=== PATIENT | female | born 1935 | race Native Hawaiian/Other Pacific Islander ===

== ENCOUNTER 2017-12-28 18:49 | Emergency (ER) | payer OTHER ==
[~2017-12-28] VITALS: Ht 165.1 cm; Wt 74.4 kg
[~2017-12-28 18:49] MED LIST: BENZONATATE200 MG PO; FLUT0.05 NAS; GUAI600T70 PO; LEVAQUIN500 MG OR; LIPITOR80 MG PO; LISI10TA11 PO
[2017-12-28 21:33] VITALS: BP 148/77; TEMP 98.4
== END 2017-12-28 21:35 | disposition home or self-care (01) ==
LOC: ED 18:49
DX: S02.19XA Other fracture of base of skull, initial encounter for closed fracture (principal); S00.03XA Contusion of scalp, initial encounter; W17.89XA Other fall from one level to another, initial encounter; Y92.098 Other place in other non-institutional residence as the place of occurrence of the external cause
CPT/HCPCS: 99283; L3908

== ENCOUNTER 2018-01-04 22:53 | Emergency (ER) | payer OTHER ==
[~2018-01-04] VITALS: Ht 165.1 cm; Wt 74.4 kg
[2018-01-05] LABS: PLATELET COUNT 219 K/uL (152-353)
[2018-01-05 00:11] LABS: POTASSIUM 3.5 mmol/L (3.6-5.2)
[2018-01-05 00:44] VITALS: BP 159/71; TEMP 97.9
== END 2018-01-05 00:45 | disposition home or self-care (01) ==
LOC: ED 22:53
PROVIDERS: Internal Medicine
DX: R41.0 Disorientation, unspecified (principal); F03.90 Unspecified dementia, unspecified severity, without behavioral disturbance, psychotic disturbance, mood disturbance, and anxiety; M17.12 Unilateral primary osteoarthritis, left knee; E87.6 Hypokalemia
CPT/HCPCS: 36415; 80053; 81000; 85027; 99283

== ENCOUNTER 2018-04-09 15:11 | Inpatient (IN) | payer OTHER | END 2018-05-08 09:36 | disposition still patient (30) | LOC: PAVC 15:11 | PROVIDERS: ADMIT Internal Medicine ==

== ENCOUNTER 2018-04-11 05:49 | Outpatient (CLI) | payer OTHER ==
[2018-04-11 06:22] LABS: PLATELET COUNT 201 K/uL (152-353)
[2018-04-11 06:42] LABS: POTASSIUM 4.1 mmol/L (3.6-5.2)
== END 2018-04-11 21:11 | disposition home or self-care (01) ==
LOC: LAB 05:49
PROVIDERS: Internal Medicine
DX: F03.90 Unspecified dementia, unspecified severity, without behavioral disturbance, psychotic disturbance, mood disturbance, and anxiety (principal); I10 Essential (primary) hypertension; M85.80 Other specified disorders of bone density and structure, unspecified site
CPT/HCPCS: 80053; 80061; 82306; 82607; 84443; 85027; 87081

== ENCOUNTER 2018-04-14 10:03 | Outpatient (CLI) | payer OTHER | END 2018-04-14 21:29 | disposition home or self-care (01) | LOC: LAB 10:03 | DX: Z75.1 Person awaiting admission to adequate facility elsewhere (principal) | CPT/HCPCS: 87081 ==

== ENCOUNTER 2018-04-22 16:20 | Outpatient (CLI) | payer OTHER | END 2018-04-22 19:06 | disposition home or self-care (01) | LOC: RAD 16:20 | DX: S70.01XA Contusion of right hip, initial encounter (principal); W18.30XA Fall on same level, unspecified, initial encounter ==

== ENCOUNTER 2018-04-26 08:16 | Outpatient (CLI) | payer OTHER | END 2018-04-26 21:41 | disposition home or self-care (01) | LOC: LAB 08:16 | DX: N39.0 Urinary tract infection, site not specified (principal) | CPT/HCPCS: 81000; 87077; 87086; 87088; 87186 ==

== ENCOUNTER 2018-05-02 13:03 | Outpatient (CLI) | payer OTHER | END 2018-05-02 19:07 | disposition home or self-care (01) | LOC: RAD 13:03 | DX: M25.551 Pain in right hip (principal) ==

== ENCOUNTER 2018-05-04 10:14 | Outpatient (CLI) | payer OTHER | END 2018-05-04 20:49 | disposition home or self-care (01) | LOC: RAD 10:14 | DX: M85.80 Other specified disorders of bone density and structure, unspecified site (principal) ==

== ENCOUNTER 2018-05-08 09:50 | Inpatient (IN) | payer OTHER | END 2018-06-08 09:37 | disposition still patient (30) | LOC: PAVC 09:50 | PROVIDERS: ADMIT Internal Medicine ==

== ENCOUNTER 2018-06-08 10:05 | Inpatient (IN) | payer OTHER | END 2018-07-06 12:12 | disposition still patient (30) | LOC: PAVC 10:05 | PROVIDERS: ADMIT Internal Medicine ==

== ENCOUNTER 2018-06-13 18:40 | Outpatient (CLI) | payer OTHER | END 2018-06-13 19:30 | disposition home or self-care (01) | LOC: LAB 18:40 | DX: R10.819 Abdominal tenderness, unspecified site (principal) | CPT/HCPCS: 81000; 87088 ==

== ENCOUNTER 2018-07-06 12:28 | Inpatient (IN) | payer OTHER | END 2018-08-06 12:30 | disposition still patient (30) | LOC: PAVC 12:28 | PROVIDERS: ADMIT Internal Medicine ==

== ENCOUNTER 2018-08-06 12:45 | Inpatient (IN) | payer OTHER | END 2018-09-05 13:42 | disposition still patient (30) | LOC: PAVC 12:45 | PROVIDERS: ADMIT Internal Medicine ==

== ENCOUNTER 2018-09-05 14:08 | Inpatient (IN) | payer OTHER | END 2018-10-06 09:39 | disposition still patient (30) | LOC: PAVC 14:08 | PROVIDERS: ADMIT Internal Medicine | DX: Z51.89 Encounter for other specified aftercare (principal) ==

== ENCOUNTER 2018-10-06 10:01 | Inpatient (IN) | payer OTHER | END 2018-11-05 11:35 | disposition still patient (30) | LOC: PAVC 10:01 | PROVIDERS: ADMIT Internal Medicine ==

== ENCOUNTER 2018-10-18 23:03 | Outpatient (CLI) | payer OTHER ==
[2018-10-18 23:33] LABS: PLATELET COUNT 191 K/uL (152-353)
[2018-10-19] LABS: POTASSIUM 4.3 mmol/L (3.6-5.2)
== END 2018-10-18 23:54 | disposition home or self-care (01) ==
LOC: LAB 23:03
PROVIDERS: Internal Medicine
DX: E78.00 Pure hypercholesterolemia, unspecified (principal); I10 Essential (primary) hypertension; E55.9 Vitamin D deficiency, unspecified; N32.81 Overactive bladder; M85.88 Other specified disorders of bone density and structure, other site
CPT/HCPCS: 80053; 82306; 85027

== ENCOUNTER 2018-11-05 11:36 | Inpatient (IN) | payer OTHER | END 2018-12-06 11:53 | disposition still patient (30) | LOC: PAVC 11:36 | PROVIDERS: ADMIT Internal Medicine ==

== ENCOUNTER 2018-12-06 14:11 | Inpatient (IN) | payer OTHER | END 2019-01-06 17:16 | disposition still patient (30) | LOC: PAVC 14:11 | PROVIDERS: ADMIT Internal Medicine ==

== ENCOUNTER 2018-12-14 06:59 | Outpatient (CLI) | payer OTHER | END 2018-12-14 23:35 | disposition home or self-care (01) | LOC: LAB 06:59 | DX: R82.998 Other abnormal findings in urine (principal) | CPT/HCPCS: 81000; 87077; 87086; 87088; 87186 ==

== ENCOUNTER 2018-12-26 14:11 | Outpatient (CLI) | payer OTHER | END 2018-12-26 23:59 | LOC: LAB 14:11 | DX: N39.0 Urinary tract infection, site not specified (principal) | CPT/HCPCS: 81000 ==

== ENCOUNTER 2019-01-06 17:38 | Inpatient (IN) | payer OTHER | END 2019-02-05 12:57 | disposition still patient (30) | LOC: PAVC 17:38 | PROVIDERS: ADMIT Internal Medicine ==

== ENCOUNTER 2019-02-05 13:27 | Inpatient (IN) | payer OTHER | END 2019-03-08 14:05 | disposition still patient (30) | LOC: PAVC 13:27 | PROVIDERS: ADMIT Internal Medicine ==

== ENCOUNTER 2019-03-08 14:32 | Inpatient (IN) | payer OTHER | END 2019-04-07 08:00 | disposition still patient (30) | LOC: PAVC 14:32 | PROVIDERS: ADMIT Internal Medicine ==

== ENCOUNTER 2019-04-07 11:00 | Inpatient (IN) | payer OTHER | END 2019-05-08 09:30 | disposition still patient (30) | LOC: PAVC 11:00 | PROVIDERS: ADMIT Internal Medicine ==

== ENCOUNTER 2019-04-08 08:56 | Outpatient (CLI) | payer OTHER ==
[2019-04-08 09:39] LABS: POTASSIUM 4.5 mmol/L (3.6-5.2)
[2019-04-08 09:53] LABS: PLATELET COUNT 205 K/uL (152-353)
== END 2019-04-08 20:50 | disposition home or self-care (01) ==
LOC: LAB 08:56
PROVIDERS: Internal Medicine
DX: Z51.81 Encounter for therapeutic drug level monitoring (principal); E55.9 Vitamin D deficiency, unspecified; I10 Essential (primary) hypertension; E78.00 Pure hypercholesterolemia, unspecified; E78.49 Other hyperlipidemia
CPT/HCPCS: 80053; 80061; 82306; 85027

== ENCOUNTER 2019-05-08 09:52 | Inpatient (IN) | payer OTHER | END 2019-06-08 10:44 | disposition still patient (30) | LOC: PAVC 09:52 | PROVIDERS: ADMIT Internal Medicine ==

== ENCOUNTER 2019-06-08 11:09 | Inpatient (IN) | payer OTHER | END 2019-07-07 14:10 | disposition still patient (30) | LOC: PAVC 11:09 | PROVIDERS: ADMIT Internal Medicine ==

== ENCOUNTER 2019-07-07 14:33 | Inpatient (IN) | payer OTHER | END 2019-08-07 11:42 | disposition still patient (30) | LOC: PAVC 14:33 | PROVIDERS: ADMIT Internal Medicine ==

== ENCOUNTER 2019-08-07 12:05 | Inpatient (IN) | payer OTHER | END 2019-09-06 11:21 | disposition still patient (30) | LOC: PAVC 12:05 | PROVIDERS: ADMIT Internal Medicine ==

== ENCOUNTER 2019-08-31 09:50 | Outpatient (CLI) | payer OTHER | END 2019-08-31 19:32 | disposition home or self-care (01) | LOC: RAD 09:50 | DX: U07.1 COVID-19 (principal) ==

== ENCOUNTER 2019-09-06 11:50 | Inpatient (IN) | payer OTHER | END 2019-09-06 23:00 | disposition E | LOC: PAVC 11:50 | PROVIDERS: ADMIT Internal Medicine ==